=== PATIENT | male | born 1940 | race Caucasian/White ===

== ENCOUNTER → 2019-07-27 | Day surgery (SDC) | payer MEDICARE, OTHER ==
[2019-07-23 12:29] LABS: BASOPHILS % 0.5 % (0.0-1.0); EOSINOPHILS # (AUTO) 0.1 (0.0-0.4); EOSINOPHILS % 1.1 % (0.0-6.0); HEMATOCRIT 44.7 % (38.2-49.6); HEMOGLOBIN 15.4 g/dL (14.0-18.0); LYMPHOCYTES # (AUTO) 1.2 (1.0-3.2); LYMPHOCYTES % 17.5 % (18.0-39.1); MEAN CORPUSCULAR HEMOGLOBIN 32.4 pg (28-32); MEAN CORPUSCULAR HGB CONC 34.5 g/dL (31-35); MEAN CORPUSCULAR VOLUME 93.9 fL (81-99); MONOCYTES # (AUTO) 0.6 (0.2-0.8); MONOCYTES % 8.3 % (4.4-11.3); NEUTROPHILS # (AUTO) 4.8 (2.1-6.9); PLATELET COUNT 194 x10e3/uL (140-360); RED BLOOD COUNT 4.76 x10e6/uL (4.3-5.7); RED CELL DISTRIBUTION WIDTH 12.3 % (11.7-14.4)
[~2019-07-27] MED LIST: ASPIR-LOW81 MG PO; ATENOLOL25 MG PO; ATORVASTATIN CA80 MG PO; BENEFIBER240 GM; CALCIUM CARBON500 MG PO; COQ-10100 MG PO; ESMOLOL HCL 100MG/10ML 10 MG/ML VIAL ONE; HYOSCYAMINE 0.125 MG TAB ONE; LIDOCAINE HCL 2% LOCAL INJ 5 ML SDV VIAL INJ ONE; PLAVIX75 MG PO; PRADAXA150 MG PO; PROPOFOL IV EMULSION 10 MG/ML 20 ML VIAL ONE
[2019-07-27 15:35] VITALS: BP 112/83
--- NOTE | 2019-07-27 21:01 | Operative Report ---
DATE OF PROCEDURE: 07/27/2019 SURGEON: Avery Mendez MD PROCEDURE: Colonoscopy with polypectomy and hemoclip. INDICATION FOR COLONOSCOPY: Surveillance colonoscopy, personal history of colon polyps. MEDICATIONS: The patient was done under MAC, please see anesthesiologist's note. PROCEDURE IN DETAIL: With the patient in left lateral decubitus position, flexible fiberoptic Olympus colonoscope was inserted into the rectum with ease and advanced all the way to the cecum. Approximately, 6 mm sessile polyp was noted in the cecum that was removed per cold snare polypectomy. Site was hemoclipped x2. The scope was then withdrawn slowly. Mucosa overlying the ascending and the transverse appeared to be grossly within normal limits. Some diverticular disease was noted in the distal descending and the sigmoid colon. The rectum grossly appeared to be within normal limits. The scope was then retroflexed into the distal rectum and moderate-sized internal hemorrhoids were noted, none of which was actively bleeding. The scope was then straightened out, it was subsequently withdrawn. The patient tolerated the procedure well. IMPRESSION: 1. Cecal polyp, cold snared, site hemoclipped x2. 2. Diverticulosis. 3. Internal hemorrhoids, none actively bleeding. PLAN: Follow up histology. Initiate high-fiber, low-fat diet. Initiate high-fiber supplement. No further colonoscopy are indicated in this patient considering is an age. Avery Mendez MD [facility] [place] /[id number] cc: Demetra Garcia DO
== END | disposition home or self-care (01) ==
LOC: ENDO 08:46
PROVIDERS: ATTEND Internal Medicine Gastroenterology
DX: Z09 Encounter for follow-up examination after completed treatment for conditions other than malignant neoplasm (principal); K63.5 Polyp of colon; K57.30 Diverticulosis of large intestine without perforation or abscess without bleeding; K64.8 Other hemorrhoids; I48.91 Unspecified atrial fibrillation; I25.10 Atherosclerotic heart disease of native coronary artery without angina pectoris; I83.90 Asymptomatic varicose veins of unspecified lower extremity; E78.5 Hyperlipidemia, unspecified; R03.0 Elevated blood-pressure reading, without diagnosis of hypertension; R73.03 Prediabetes; Z01.810 Encounter for preprocedural cardiovascular examination; Z01.812 Encounter for preprocedural laboratory examination; Z11.59 Encounter for screening for other viral diseases; Z79.82 Long term (current) use of aspirin; Z68.25 Body mass index [BMI] 25.0-25.9, adult; Z95.5 Presence of coronary angioplasty implant and graft
CPT/HCPCS: 36415; 45385; 85025; 87635; 88305; 93005 ×2; J2001; J2704; 45378